=== PATIENT | male | born 1960 | race Caucasian/White ===

== ENCOUNTER → 2018-08-16 | Outpatient (CLI) | payer MEDICARE, MEDICAID ==
[~2018-08-16] MED LIST: BENA25TA4 PO; CARB20TAXR PO; CENTTAB47 PO; COLA100C5 PO; DEBR6.5S4 AU; DEPA1TAB3 PO; FERR325T3 PO; META48.54 PO; PATA0.2S OU; PEPC1TAB5 PO; PRIL20CA9 PO; RIBO100C PO; RISP2TAB32 PO; RISP3TAB20 PO; TYLE650T35 PO; ZOCO20TA PO
--- NOTE | 2018-08-16 14:06 | REP ---
REASON: Pain after a fall. PRIORS: None. FINDINGS: No acute fracture or destructive osseous lesion. Electronically Signed by Agusto Padilla DO 08/16/2018 02:42 P
--- NOTE | 2018-08-16 14:07 | REP ---
REASON: Pain after trauma. PRIORS: None. FINDINGS: No acute fracture or destructive osseous lesion. Electronically Signed by Agusto Padilla DO 08/16/2018 02:42 P
--- NOTE | 2018-08-16 14:07 | REP ---
REASON: Pain after trauma. PRIORS: None. A single AP view of the pelvis was performed. The hip joint spaces are symmetric and relatively well maintained. There is no acute fracture or destructive osseous lesion. Electronically Signed by Agusto Padilla DO 08/16/2018 02:42 P
== END ==
LOC: M WUC 11:10
PROVIDERS: ATTEND Physician Assistant
DX: M79.662 Pain in left lower leg (principal); M79.661 Pain in right lower leg

== ENCOUNTER → 2020-02-13 | Outpatient (REF) | payer MEDICARE, MEDICAID ==
[~2020-02-13] MED LIST changes: +ACET650T61 PO; +OLOP2.5D3 OU; -PATA0.2S OU; -TYLE650T35 PO
== END ==
LOC: M WUC 19:58
PROVIDERS: ATTEND Physician Assistant
DX: R50.9 Fever, unspecified (principal)

== ENCOUNTER → 2021-05-26 | Outpatient (CLI) | payer MEDICARE, MEDICAID ==
[~2021-05-26] MED LIST changes: +DIPH50CA PO; +MONT10TA97 PO; +MULT-40 PO; +OMEP-173 PO; +VITAMIN B 2 PO
== END ==
LOC: M LABSMTC 11:25
PROVIDERS: ATTEND Anesthesiology
DX: Z01.812 Encounter for preprocedural laboratory examination (principal); Z20.822 Contact with and (suspected) exposure to COVID-19

== ENCOUNTER 2021-05-31 08:03 | Day surgery (SDC) | payer MEDICARE, MEDICAID ==
[~2021-05-31] VITALS: Ht 172.7 cm; Wt 75.0 kg
[~2021-05-31 08:03] MED LIST changes: +NS 1,000 ML IV ONE
[2021-05-31] MEDS ORDERED: propofoL 200 MG/20 ML VIAL As Ordered ONE (10:40)
[2021-05-31] MEDS ORDERED: LIDOCAINE 2% MDV 20ML VIAL As Ordered ONE (10:40)
[2021-05-31 11:05] VITALS: BP 165/89
== END 2021-05-31 11:11 | disposition home or self-care (01) ==
LOC: M OPP 08:03
PROVIDERS: ATTEND Internal Medicine Gastroenterology
DX: Z12.11 Encounter for screening for malignant neoplasm of colon (principal); Z86.010 Personal history of colon polyps; K63.5 Polyp of colon; K64.8 Other hemorrhoids; Z79.899 Other long term (current) drug therapy; Z91.018 Allergy to other foods